=== PATIENT | female | born 1990 | race Caucasian/White ===

== ENCOUNTER 2017-02-08 11:58 | Emergency (ER) | payer OTHER ==
[~2017-02-08] VITALS: Ht 177.8 cm; Wt 60.9 kg
[~2017-02-08 11:58] MED LIST: FAMO40TA72 PO; HYDR-4003 PO
[2017-02-08 12:00] VITALS: BP 109/75; PULSE 92; RESP 14; O2SAT 100
--- NOTE | 2017-02-08 12:35 | ED.REPORT ---
HPI-Abd Pain F Under 40 Date of Service Feb 08, 2017 ED Provider: Dixon Peña MD The patient is a 26 year old female with a history of ovarian cysts and appendectomy presents to the ED with a week of of waxing and waning RLQ abdominal pain. Symptoms are exacerbated with activity and ambulation. Pain is described as "cramping", similar to uterine contractions. Associated nausea with pain exacerbation. This morning, she has had a lot of pressure in her uterine and rectum. Patient denies fever, chills, weakness, dizziness, and any urinary symptoms. Patient has been to the ED a few times for similar symptoms and was found to be due ovarian cysts. The last episode was in 07/2016. This abdominal pain does not feel worse than before, but she is concerned of ovarian torsion. Denies history of STDs. LMP 01/18/17. Of note, patient had a pelvic exam done by her PCP a few days ago and was diagnosed with yeast infection. It was treated. She denies any vaginal bleeding , discharge, or itching currently. Nursing Notes Stated Complaint: ABDOMINAL PAIN Chief Complaint: Female Abdominal Pain Nursing Notes Reviewed: Yes Allergies: Coded Allergies: Sulfa (Sulfonamide Antibiotics) (Verified Allergy, Unknown, 02/08/17) sulfamethoxazole (Verified Allergy, Unknown, 02/08/17) trimethoprim (Verified Allergy, Unknown, 02/08/17) No Active Prescriptions or Reported Meds General Time Seen by MD: 12:15 Chief Complaint Abdominal pain Hx Obtained From: Patient Arrived By: Walk-in Sudden in Onset?: Yes Onset Occurred: 1 week ago Context of Onset: Mid menstrual cycle Symptom Duration: Waxes and wanes Progression since Onset: Intermittent Location: : RLQ Quality: Cramping, Pressure Radiation: : Does not radiate Severity: Current: Mild Severity: Maximum: Moderate Associated with: Denies: Anorexia, Back pain, Chills, Constipation, Diarrhea, Dysuria, Melena, Shortness of breath, Vomiting Pertinent Negative: Pt denies other symptoms Exacerbated by: Certain positions, Movement Pertinent Negative: Relieved by nothing Recent Healthcare: No recent hospitalization, Recent doctor visit Similar Sx Previous: Yes Risk Factors Ectopic Risk Stratification No risk factors Past Medical History Past Medical History PE in 2012 while on OCPs and smoking. No longer on anticoagulation. Ovarian cysts Past Surgical History Knee surgery Reports: Appendectomy, Tonsillectomy Family History Noncontributory. Patient was adopted. Smoking History Light Tobacco Smoker Social History Alcohol Use: Denies alcohol use Drug Use: Denies drug use Other Social History: Local resident Ambulatory Status Independent Review of Systems Basic Review of Systems Eyes: Vision NL, No discharge ENT: Hearing NL, No pain, No nasal congestion, No pharyngeal pain Skin: No bruising, No rash, No itch Allergy / Immune: No allergy Neurologic: NL mental status, No weakness, No numbness Psychiatric: Normal thought content Constitutional: Denies: Chills, Fatigue, Fever GI: Reports: Abdominal pain, Nausea, Denies: Anorexia, Bloody/tarry stool, Constipation, Diarrhea, Hematemesis, Hematochezia, Vomiting Female: Reports: Pelvic pain, Denies: Dysuria, Flank pain, Hematuria, Incontinence, Urinary frequency, Urinary urgency, Vaginal bleeding - abnl, Vaginal discharge Musculoskeletal: Denies: Back pain, Extremity pain Complete sys rev & neg: except as marked. Physical Exam Initial Vital Signs Vital Signs (First) Date Time Temp Pulse Resp B/P Pulse Ox O2 Delivery O2 Flow Rate FiO2 02/08/17 12:00 36.3 92 14 109/75 100 Room Air Initial VS: Reviewed, Vital signs normal Head / Eyes: Atraumatic, Normocephalic, PERRL ENT: Mucous membranes moist, Conjunctiva normal, No scleral icterus Neck: Supple, Non-tender, Full range of motion Lymphatic: No lymphadenopathy Extremities: Vascular intact, Neuro intact, No swelling, No tenderness Skin: Warm, Dry, No cyanosis Neurologic: Alert, Oriented, Nonfocal Psychiatric: Mood/affect normal, Behavior normal, Normal thought content General/Constitutional: Awake, Alert, No acute distress, Well appearing, Well developed, Well hydrated, Cooperative, Not toxic appearing Respiratory / Chest: Atraumatic, Breath sounds NL, Breath sounds = bilat, No respiratory distress, No rales, No rhonchi, No wheezing, No retractions Cardiovascular: Heart rate NL, Regular rhythm, No murmurs, Pulses = bilaterally , No gross BP differential Abdomen: Atraumatic, Soft, No guarding, No rebound, BS normoactive, No distention Tenderness/Guarding/Rebound: Positive: Tender RLQ... (Moderate), Tender suprapubic Back: Atraumatic, Inspection NL, Full range of motion, Non-tender, No muscle spasm, No CVA tenderness Psychiatric: Affect NL, Mood NL, Cognitive function NL, Judgment/insight NL, Thought content NL Interpretation & Diagnostics Lab Results Interpretation Test 02/08/17 12:16 Hold Urine Received (Received) US Focused non-OB Pelvis Verbal report from zafar- bilmelissa ovarian cysts, largest 2cm, physiologic pelvic fluid, no evidence of torsion Exam Performed by: Allied health pract Exam Type: Diagnostic Re-Eval/Medical Decision Med Decision/Clinical Course 26 yo female with history of ovarian cysts and appendectomy presenting for 1- week history of crampy RLQ pain. She denies other associated symptoms and reports similar pain in the past when she had hemorrhagic ovarian cysts. There is no hemorrhagic ovarian cyst but there are several ovarian cysts confirmed on ultrasound. This is consistent with the patient's history. Differential diagnoses considered were ovarian cyst, ovarian torsion, malignancy, PID, and urinary tract infection. However, her Urine dip today was negative for and infection. Shared decision making with the patient about not ordering labs given her benign presentation. Patient concurred to the plans. She declined pain medication in the ER and did not want a prescription for Naproxen. She will follow up with her PCP and [facility]. Re-Evaluation/Progress #1: Time of Eval: 14:00 Re-Evaluation/Progress Note: Patient rechecked after U/S was done. Abdominal pain unchanged, but reports to feel comfortable. Declined pain medication. Re-Evaluation/Progress #2: Time of Eval: 15:38 Patient Status: Condition improved Re-Evaluation/Progress Note: U/S result discussed. Patient is amenable to the plan. Return precautions given. All other questions addressed. Counseled Regarding: Diagnosis, Lab results, Need for follow-up, When/why to return to ED Discharge & Departure Shift Change Sign-Out Response to Therapy: Worsened Primary Impression: Ovarian cyst Additional Impression: Pelvic pain Disposition: Home Discharge Condition All VS Reviewed: Yes Condition: Stable Patient Instructions: Ovarian Cyst (ED) Additional Instructions: You were seen in the ER today for evaluation of the right lower quadrant abdominal and pelvic pain. Based on your history and exam, it is very unlikely that you have an ovarian torsion. Your test is negative and thus ectopic is not likely as well. We discussed about the possibility that the abdominal/pelvic pain is due to the ovarian cysts. There is no clinical evidence that you are having an acute infection, thus no labs were done today. Your urine dip is negative for infection. Pelvic U/S shows some ovarian cysts with the largest one around 2cm in size. No other abnormalities. You can take Naproxen or Ibuprofen as needed for the pain. Remember to take it with food. Applying heat pads can also help with your symptoms. Please follow up with your primary care doctor and [facility] for the management of the ovarian cysts if they continue to bother you. control pills can help regulate these cysts, but unfortunately, you cannot be on estrogen-based OCPs given your history of pulmonary embolism. Go to the ER if you develop severe abdominal pain, anorexia, nausea, vomiting, fever, chills, dizziness, or severe headache. Referrals: OTHER,PHYSICIAN (PCP) (Family) Attending Statment I personally examined this patient with Dr Chávez on 02/08. Agree with above. Toshia Chávez DO Feb 08, 2017 12:35 Dixon Peña MD Feb 08, 2017 18:56
[2017-02-08 15:45] VITALS: BP 112/72; PULSE 84; RESP 16; O2SAT 100
--- NOTE | 2017-02-09 09:44 | DRSVH ---
PROCEDURE: US PELVIC SONOGRAM INDICATIONS: right pelvic pain TECHNIQUE: Real-time scanning was performed of the pelvic organs, with image documentation. Additional endovagi nal scanning was necessary due to incomplete visualization of the adnexal and endometrial structures by transabdominal scanning. COMPARISON: [facility], US, US PELVIC+TRANSVAG+DOP, 07/22/2016, 9:02. FINDINGS: (orthogonal measurements) Uterus size: 7.33 cm Endometrium thickness: 6.40 mm Right ovary size: 5.04 cm Left ovary size: 2.37 cm Transabdominal scanning: Limited scanning through the kidneys shows no hydronephrosis. No pathologi c free abdominal or pelvic fluid. Endovaginal scanning: Uterus: Uterus is normal in size and appearance. Endometrium is within normal physiologic limits. Ovaries: Resolved previously noted complex right ovarian cyst. There is a roughly 1.2 1.4 cm mildly complex cystic structure now within the right ovary suggesting a regressing follicular cyst. The lef t ovary is normal. IMPRESSION: Resolved complex right ovarian mass and there is a mildly complex cystic structure now in volving the right ovary suggesting a regressing follicular cyst. Dictated by: Junior DOYLE Interpreted: Jennifer Nicholson MD on 02/08/2017 at 14:49 Approved by: Jennifer Nicholson M.D. on 02/09/2017 at 9:42
== END 2017-02-08 15:54 | disposition home or self-care (01) ==
LOC: SED 11:58
DX: N83.201 Unspecified ovarian cyst, right side (principal); N83.202 Unspecified ovarian cyst, left side; R10.2 Pelvic and perineal pain; Z88.2 Allergy status to sulfonamides; Z88.8 Allergy status to other drugs, medicaments and biological substances